=== PATIENT | female | born 1990 ===

== ENCOUNTER 2018-05-18 19:19 | Emergency (ER) | payer SELFPAY ==
[2018-05-18 20:04] VITALS: RESP 18
[2018-05-18] MEDS ORDERED: cefTRIAXone (Rocephin) 250 mg Inj IM ONE (23:05)
[2018-05-18] MEDS ORDERED: Lidocaine 1% Inj (20ml) ONE (23:33)
[2018-05-18] MEDS ORDERED: cefTRIAXone (Rocephin) 250 mg Inj ONE (23:34)
[2018-05-18 23:40] LABS: SQUAMOUS EPITHIAL 1 /hpf (0-5); URINE BACTERIA RARE (<OCC); URINE BILIRUBIN NEGATIVE (NEGATIVE); URINE BLOOD NEGATIVE (NEGATIVE); URINE CLARITY CLEAR (Clear); URINE COLOR COLORLESS (YELLOW); URINE GLUCOSE (UA) NEG (Normal); URINE LEUKOCYTE ESTERASE NEG Leu/uL (Negative); URINE PROTEIN NEGATIVE (NEGATIVE); URINE UROBILINOGEN 0.2-1.0 mg/dL (0.2-1.0)
[2018-05-19 00:45] VITALS: BP 109/55; PULSE 61; TEMP 98.2; O2SAT 99
--- NOTE | 2018-05-19 00:52 | ED PDOC ---
HPI: Female Pain Time Seen by Provider: 05/18/18 20:54 Chief Complaint (Nursing): Female Genitourinary Chief Complaint (Provider): nausea, dysuria, malaise History Per: Patient History/Exam Limitations: no limitations Onset/Duration Of Symptoms: Days Current Symptoms Are (Timing): Still Present Additional Complaint(s): 27 y/o F who presents to ED c/o nausea, malaise, mild pelvic discomfort and dysuria for 2 weeks. She states that she began taking a new oral contraceptive about 1 month ago. Her boyfriend was just diagnosed with "infection in his testicle" yesterday and started antibiotics. She was told to have herself checked. Admits to subjective fevers but denies cough, dizziness. She further admits to dysuria, heistancy and urgency as well as mild vaginal discharge but no foul odor. She attempted to use topical Metronidazole cream w/o any improvement. She is sexually active. Denies dyspareunia. Past Medical History Reviewed: Historical Data, Nursing Documentation, Vital Signs Vital Signs: Last Vital Signs Temp 98.2 F 05/19/18 00:41 Pulse 61 05/19/18 00:41 Resp 18 05/19/18 00:41 BP 109/55 L 05/19/18 00:41 Pulse Ox 99 05/19/18 00:41 - Medical History PMH: No Chronic Diseases - Surgical History Surgical History: No Surg Hx - Family History Family History: States: Unknown Family Hx - Social History Current smoker - smoking cessation education provided: No Ex-Smoker (has not smoked in the last 12 months): No Alcohol: None - Allergies Allergies/Adverse Reactions: Allergies Allergy/AdvReac Type Severity Reaction Status Date / Time No Known Allergies Allergy Verified 05/18/18 20:01 Review of Systems ROS Statement: Except As Marked, All Systems Reviewed And Found Negative Constitutional: Negative for: Sweats, Malaise Respiratory: Negative for: Cough, Shortness of Breath Gastrointestinal: Positive for: Nausea, Abdominal Pain (mild pelvic discomfort). Negative for: Vomiting Genitourinary Female: Positive for: Dysuria, Frequency Physical Exam - Reviewed Nursing Documentation Reviewed: Yes Vital Signs Reviewed: Yes - Physical Exam Appears: Positive for: Well Head Exam: Positive for: ATRAUMATIC, NORMAL INSPECTION, NORMOCEPHALIC Skin: Positive for: Normal Color Eye Exam: Positive for: Normal appearance ENT: Positive for: Normal ENT Inspection Neck: Positive for: Normal Cardiovascular/Chest: Positive for: Regular Rate, Rhythm Respiratory: Positive for: Normal Breath Sounds Gastrointestinal/Abdominal: Positive for: Normal Exam Pelvic Exam: Positive for: External Exam Normal, No Cerv. Motion Tender, No Masses, Discharge, Other (speculum exam with mild yellowish discharge at cervical os, bimanual exam with mild adnexal tenderness). Negative for: Active Bleeding, Blood, Tender W/Cervical Motion Back: Positive for: Normal Inspection Lymphatic: Positive for: Normal Exam Neurologic/Psych: Positive for: Alert, Oriented - ECG O2 Sat by Pulse Oximetry: 99 Medical Decision Making Medical Decision Making: U/A negative for leukocyte esterase or nitrites. urine culture culture for GC/Chlamydia sent urine negative Given Ceftriaxone 250mg IM x 1 and Azithromycin 1G PO x 1 Advised to f/u with primary care doctor to discuss changing oral contraceptives as may be contributing to nausea Disposition - Clinical Impression Clinical Impression: Female genitourinary symptoms - Patient ED Disposition Is Patient to be Admitted: No - Disposition Referrals: [facility] [Outside] Disposition: Routine/Home Disposition Time: 00:50 Condition: STABLE Additional Instructions: No sexual intercourse for 7 days. You will be called if culture results are positive. Instructions: Sexually-Transmitted Diseases (DC) Forms: [employer] (Telugu) Print Language: SURINAMESE - POA Present On Arrival: None
== END 2018-05-19 00:41 | disposition home or self-care (01) ==
LOC: H.ER 19:19
DX: N89.8 Other specified noninflammatory disorders of vagina (principal)
CPT/HCPCS: 81003; 81025; 87086; 87491; 87591; 96372; 99283; J0696